=== PATIENT | female | born 1980 | race Caucasian/White ===

== ENCOUNTER 2018-03-08 11:13 | Day surgery (SDC) | payer OTHER ==
[2018-03-08] MEDS ORDERED: PROPOFOL 20 ML (13:36)
== END 2018-03-08 15:45 | disposition home or self-care (01) ==
LOC: GIL 11:13
DX: K52.9 Noninfective gastroenteritis and colitis, unspecified (principal); K64.8 Other hemorrhoids
CPT/HCPCS: 45380; 88305